=== PATIENT | female | born 1980 | race Two or more races ===

== ENCOUNTER 2023-03-05 22:38 | Emergency (ER) | payer OTHER ==
[~2023-03-05] VITALS: Ht 162.6 cm; Wt 72.6 kg
[2023-03-06] MEDS ORDERED: COVERSYL (00:21)
[2023-03-06 06:55] LABS: HEMATOCRIT 40.2 % (36.0-45.00); MEAN CELL VOLUME 87.6 fL (80.00-100.00); MEAN CORPUSCULAR HEMOGLOBIN 30.6 pg (27.00-32.0); MEAN CORPUSCULAR HGB CONC 34.9 g/dl (32.0-36.0); PLATELET COUNT 264 K/uL (150-450); RED BLOOD COUNT 4.59 M/uL (4.00-6.00); RED CELL DISTRIBUTION WIDTH 13.6 % (11.5-14.5)
== END 2023-03-06 09:44 ==
LOC: ER 22:38
PROVIDERS: General Practice
DX: R00.2 Palpitations (principal); R53.81 Other malaise; I10 Essential (primary) hypertension; Z20.822 Contact with and (suspected) exposure to COVID-19